=== PATIENT | male | born 1960 | race Caucasian/White ===

== ENCOUNTER → 2022-08-12 16:17 | Outpatient (BNVA) | payer OTHER, SELFPAY | PROVIDERS: Visit Provider Nurse Practitioner Family | DX: M25.561 Pain in right knee (principal); M17.11 Unilateral primary osteoarthritis, right knee | CPT/HCPCS: 73562 ==

== ENCOUNTER 2022-08-23 11:42 | Outpatient (CLI) | payer OTHER, SELFPAY ==
--- NOTE | 2022-08-23 12:00 | MR_ITS ---
WS: [id number] MRI RIGHT KNEE NONCONTRAST TECHNIQUE: Axial PD, coronal PD fat sat, coronal PD, sagittal PD, and sagittal PD fat-sat images obta ined. CLINICAL INFORMATION: M25.561 - Pain in right knee COMPARISON: None. FINDINGS: Distal quadriceps and patella tendons are intact. Normal ACL and PCL. Moderate narrowing medial joint compartment. Mild hypertrophic changes along the joint line. No significant bone marrow edema. Valeria l femoral condyles and tibial plateau. Tear involving the posterior horn medial meniscus extending to the meniscal root. 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 No subchondral edema. Lateral meniscus intact. Prepatellar and infrapatellar soft tissue edema. Hypertrophic patella. Moderate chondromalacia patell a. Medial and lateral patellar retinacula appear intact. Normal lateral collateral ligament. Normal p opliteus. Normal MCL. Tiny likely popliteal cyst measuring 12 x 5 mm MR/MR knee RT wo con* [id number] IMPRESSION: 1. ACL and PCL are intact. 2. Tear involving the posterior horn medial meniscus extending to the meniscal root and peripheral articular surface. 3. Moderate narrowing medial joint compartment with grade II to III chondromal acia. 4. Medial and lateral collateral ligaments are intact. 5. Tiny popliteal cyst measuring 12 x 5 mm. 6. Moderate chondromalacia patella with hypertrophic patella. 7. Small suprapatellar effusion. Prepatellar and infrapatellar soft tissue lee ma. Outbridge grading: grade III: partial-thickness cartilage loss with focal ulcer ation
== END 2022-08-23 11:43 | disposition home or self-care (01) ==
PROVIDERS: PCP Family Medicine; Visit Provider Nurse Practitioner Family
DX: S83.221A Peripheral tear of medial meniscus, current injury, right knee, initial encounter (principal); X58.XXXA Exposure to other specified factors, initial encounter; M25.561 Pain in right knee; R29.898 Other symptoms and signs involving the musculoskeletal system; M25.461 Effusion, right knee
CPT/HCPCS: 73721

== ENCOUNTER 2022-09-20 06:00 | Outpatient (RCR) | payer OTHER, SELFPAY | END 2022-10-07 23:59 | disposition home or self-care (01) | LOC: GPT 06:00 | PROVIDERS: Visit Provider Orthopaedic Surgery | DX: S83.281D Other tear of lateral meniscus, current injury, right knee, subsequent encounter (principal); M25.561 Pain in right knee; X58.XXXD Exposure to other specified factors, subsequent encounter | CPT/HCPCS: 97110; 97140; 97162 ==

== ENCOUNTER 2022-10-08 06:00 | Outpatient (RCR) | payer OTHER, SELFPAY | END 2022-10-24 23:59 | disposition home or self-care (01) | LOC: GPT 06:00 | PROVIDERS: Visit Provider Orthopaedic Surgery | DX: S83.281D Other tear of lateral meniscus, current injury, right knee, subsequent encounter (principal); X58.XXXD Exposure to other specified factors, subsequent encounter | CPT/HCPCS: 97110; 97140 ==

== ENCOUNTER → 2024-12-28 13:20 | Outpatient (BNVA) | payer BC, SELFPAY | PROVIDERS: PCP Nurse Practitioner Family; Visit Provider Nurse Practitioner Family | DX: R05.1 Acute cough (principal); R91.8 Other nonspecific abnormal finding of lung field | CPT/HCPCS: 71046 ==